=== PATIENT | male | born 1965 | race Caucasian/White ===

== ENCOUNTER 2017-05-31 07:35 | Day surgery (SDC) | payer BC ==
--- NOTE | 2017-05-16 07:42 | HP ---
HISTORY AND PHYSICAL: DATE OF ADMISSION: He is scheduled for surgery at [facility] on 05/31/17. HISTORY AND PHYSICAL EXAM DATE: 05/16/17 ATTENDING PHYSICIAN: Dr. Nunez * (DICTATED BY BRIGETTE RANDHAWA NP) CHIEF COMPLAINT: Ventral hernia and abdominal scar. HISTORY OF PRESENT ILLNESS: Chilango Roberts is a 51-year-old male who has an incisional ventral hernia with a widened abdominal scar. He has a history of intestinal obstruction and which he had surgery for this. Postoperatively, he has developed a small incisional ventral hernia and a widened abdominal scar and Dr. Nunez will be repairing the hernia with mesh and revising the abdominal scar. Dr. Nunez has discussed the nature and course of scar revision and hernia repair and has discussed the material risks and relevant alternatives to surgery. These are reviewed with the patient at his preoperative appointment including but not limited to infection, bleeding, poor healing, recurrence, DVT. The patient has been given a chance to ask questions and these have been answered. The patient will sign on admission an informed consent for ventral hernia repair with possible mesh and revision of abdominal scar. PAST MEDICAL HISTORY: The patient has a history of testicular cancer, hepatomegaly, venous reflux disease, stomach varices. PAST SURGICAL HISTORY: Cholecystectomy, surgery for his intestinal blockage, surgery for testicular cancer, and bilateral radiofrequency closure of the greater saphenous veins. MEDICATIONS: 1. Cyclobenzaprine HCl 10 mg tablets 3 times a day as needed. 2. Testosterone 200 mg every 2 weeks. 3. Trazodone HCl 50 mg daily. ALLERGIES: None. FAMILY HISTORY: Mother is in good health. Father at age 64 due to alcoholism. 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 He has a history of half a pack of cigarette use for 10 years, he notes that he is in the process of trying to quit. He denied alcohol use. REVIEW OF SYSTEMS: He denied problems with anesthesia. He denied bleeding tendencies. He has most recently had a cold approximately 2 weeks ago and taken antibiotics for this, but is currently without symptoms. PHYSICAL EXAMINATION GENERAL: Chilango Roberts is a 51-year-old male, well developed, well nourished, in no acute distress. VITAL SIGNS: Blood pressure 108/65, pulse is 95, respirations 18, weight 170 pounds. HEENT: Within normal limits. Teeth are in good repair. Pharynx clear. CHEST: Lungs clear. HEART: S1, S2. Regular rate and rhythm. No extra sounds, murmurs, clicks, or rubs. ABDOMEN: Soft, nontender. The patient has an upper midline ventral hernia and midline widened scar. There are no palpable masses. EXTREMITIES: +2 symmetrical radial pulses. NEURO: Alert and oriented x3. The rest exam was grossly intact. LOCAL EXAM: Shows a midline ventral incisional hernia and widened abdominal scar. PLAN: Same-day surgery admission to Dr. Nunez's service for ventral hernia repair with possible mesh and revision of abdominal scar. BRIGETTE RANDHAWA NP [id number]/[facility] #: [id number] EDNA
[~2017-05-31 07:35] MED LIST: Buffered Lidocaine 0.9% SYRIN* 5 ML/SYR SYRINGE INTRADERM ONE; Dexamethasone IV* 4 MG/ML 1 ML (4 MG) IV SLOW PU ONE; Famotidine IV* 10 MG/ML 2 ML (20 mg) IV ONE
[2017-05-31] MEDS ORDERED: ceFAZolin 2 GM PREMIX (*) 2 GM/50 ML BAG IVPB ONE (07:51)
[2017-05-31] MEDS ORDERED: Dexamethasone IV* 4 MG/ML 1 ML (4 MG) ONE (07:51)
[2017-05-31] MEDS ORDERED: Famotidine IV* 10 MG/ML 2 ML (20 mg) ONE (07:51)
[2017-05-31] MEDS ORDERED: Enoxaparin(*) 40 MG/0.4 ML SYR ONE (07:52)
[2017-05-31] MEDS ORDERED: Lidocaine 1% INJ* 10 MG/ML 30 ML SDV ONE (08:21)
[2017-05-31] MEDS ORDERED: Bupivacaine 0.5% SDV PF* 10-30ML VIAL ONE ×2 (08:22→09:54)
[2017-05-31] MEDS ORDERED: fentaNYL* 50 MCG/ML 2 ML VIAL (100 MCG VIAL) ONE ×2 (08:30→09:54)
[2017-05-31] MEDS ORDERED: Midazolam* 1 MG/ML 2 ML VIAL (2 MG) ONE (08:30)
[2017-05-31] MEDS ORDERED: Ketorolac INJ* 30 MG/ML 1 ML VIAL ONE (09:22)
[2017-05-31] MEDS ORDERED: Propofol* 10 MG/ML 20 ML BTL IV PUSH ONE (09:22)
[2017-05-31] MEDS ORDERED: Ondansetron INJ* 2 MG/ML VIAL ONE (09:22)
[2017-05-31] MEDS ORDERED: DiMENhydriNATE IV* 50 MG/ML VIAL IV PUSH PRN (09:35)
[2017-05-31] MEDS ORDERED: Naloxone* 0.4 MG/ML 1 ML VIAL IV PRN (09:35)
[2017-05-31] MEDS ORDERED: fentaNYL* 50 MCG/ML 2 ML VIAL (100 MCG VIAL) IV PRN (09:35)
[2017-05-31 11:06] VITALS: BP 100/87
--- NOTE | 2017-06-01 02:51 | OP ---
DATE OF OPERATION: 05/31/17 - [facility] DATE OF : 67 SURGEON: Morris Nunez MD END LATHE OPERATOR: Tita Herman NP ANESTHESIOLOGIST: Leno Mccray MD ANESTHESIA: General. PRE-OP DIAGNOSES: 1. Incisional ventral hernia. 2. Deformed scar of the mid abdomen. POST-OP DIAGNOSES: 1. Incisional ventral hernia. 2. Deformed scar of the mid abdomen. OPERATIVE PROCEDURE: 1. Incisional ventral hernia repair. 2. Revision of abdominal scar. ESTIMATED BLOOD LOSS: Approximately less than 20 cc. SPECIMEN: Abdominal scar. DESCRIPTION OF PROCEDURE: The patient was taken to the procedure room. Prior to this, the abdominal scar was marked as well as the ventral hernia which was located in the upper mid abdomen. The patient was then taken to the operating room. He received preoperative antibiotics, SCDs for DVT prophylaxis and under general anesthesia, he was prepped and draped in the usual sterile fashion. After this was done, the old scar was marked on the site for alignment. The scar was wide approximately 2 to 3 cm in some areas as this incision had healed by secondary intention after a Pneumovax had been applied after his past abdominal surgery. He also developed an upper incisional hernia and after the markings were done, an incision outside the old scar where there was healthy skin was made from top to bottom starting in the epigastrium all the way down to the symphysis pubis. Once this was done, the incision was carried on both sides. Bleeding was controlled by electrocoagulation. After this was done by sharp dissection, the mid scar was resected from top to bottom, leaving the fascia exposed. Again bleeders were controlled by electrocoagulation and the scar was sent as a specimen. We then concentrated our attention in the incisional ventral hernia. There was one in the upper epigastrium that measuring approximately a centimeter in diameter at the size of the ring and there was another smaller size more distal measuring 0.5 cm and there was some diastasis of the recti muscle. The fascia appeared to be strong and the rectus abdominis muscles were strong as well and well in the midline. A decision was made to proceed with nonabsorbable sutures. Dissection was carried around the sac in the properitoneal space in both hernias and under direct vision, the fascia was closed with a Durga Hart technique [id number] suturing using 2 - 0 Prolene and reinforcement of the midline in the areas of diastasis were done as well as with interrupted 2-0 Prolene. After they were placed under direct vision, the sutures when they are pulled upward and one-by-one was tied down and at the end they were then all cut. There was a strong repair with excellent approximation. There were no hernias in the mid or lower abdomen and at this point we then proceeded to reconstruct the subcutaneous tissue and skin , reapproximating the wide gap of the abdominal panniculus. Realigning the markings with interrupted 4-0 Vicryl and after this, a 4-0 Vicryl was used for subcutaneously using interrupted sutures until the skin had been approximated. The skin was then closed with a subcuticular using 4-0 Biosyn in a subcuticular manner and the skin was also reinforced with Steri-Strips. After this was done , there was excellent approximation prior to the complete closure of the skin. Marcaine was infiltrated and subcutaneous tissue for postoperative pain and after this was done, a non- pressure bandage was applied to the abdominal wall. The patient tolerated the procedure well and he was taken in good condition to recovery room. [id number]/[facility] #: [id number] EDNA
== END 2017-05-31 11:25 | disposition home or self-care (01) ==
LOC: OREAST 07:35
PROVIDERS: ATTEND Surgery
DX: K43.2 Incisional hernia without obstruction or gangrene (principal); L90.5 Scar conditions and fibrosis of skin; F17.200 Nicotine dependence, unspecified, uncomplicated; Z86.711 Personal history of pulmonary embolism; K70.30 Alcoholic cirrhosis of liver without ascites; G62.1 Alcoholic polyneuropathy; D69.6 Thrombocytopenia, unspecified; Z85.47 Personal history of malignant neoplasm of testis
CPT/HCPCS: 88300; J0690; J1100; J1650; J1885; J2250; J2405; J2704; J3010

== ENCOUNTER 2018-05-09 18:12 | Emergency (ER) | payer BC ==
[2018-05-09 18:38] VITALS: BP 130/86
--- NOTE | 2018-05-09 18:55 | UC ---
UC General HPI - HPI Summary HPI Summary: PT C/O MM ACHES, JOINT PAINS, HEADACHE AND FEVER OF 100.3 ONSET TODAY. + SORE THROAT - History of Current Complaint Chief Complaint: UCGeneralIllness Stated Complaint: FLU LIKE SXS Time Seen by Provider: 05/09/18 18:40 Onset/Duration: Sudden Onset Timing: Constant Pain Intensity: 5 Associated Signs & Symptoms: Positive: Diarrhea - LOOSE ONCE YESTERDAY, Fever, Headache. Negative: Abdominal Pain, Cough, Chest Pain, Dysuria, Nausea, SOB, Vomiting - Allergy/Home Medications Allergies/Adverse Reactions: Allergies Allergy/AdvReac Type Severity Reaction Status Date / Time Adhesive Tape Allergy Intermediate Rash Verified 05/09/18 18:27 PMH/Surg Hx/FS Hx/Imm Hx - Additional Past Medical History Additional PMH: SLEEP DISTURBANCE. - Surgical History Surgical History: Yes Surgery Procedure, Year, and Place: B/L ORCHIECTOMY. CHOLECYSTECTOMY. BOWEL RESECTION. SCAR REVISION OF BOWEL RESECTION--2018 - Family History Known Family History: Positive: Cardiac Disease, Hypertension - Social History Alcohol Use: None Alcohol Amount: 8 DRINKS OF VODKA DAILY Substance Use Type: None Smoking Status (MU): Former Smoker Type: Cigarettes Amount Used/How Often: 1 PPD Length of Time of Smoking/Using Tobacco: 10/2017 Have You Smoked in the Last Year: Yes - Immunization History Vaccination Up to Date: Yes Review of Systems All Other Systems Reviewed And Are Negative: Yes Constitutional: Positive: Fever, Chills Skin: Positive: Negative Eyes: Positive: Negative ENT: Positive: Sore Throat Respiratory: Positive: Negative Cardiovascular: Positive: Negative Gastrointestinal: Positive: Negative Genitourinary: Positive: Negative Motor: Positive: Negative Neurovascular: Positive: Negative Musculoskeletal: Positive: Arthralgia, Myalgia Neurological: Positive: Headache Psychological: Positive: Negative Is Patient Immunocompromised?: No Physical Exam Triage Information Reviewed: Yes Appearance: Well-Appearing Vital Signs: Initial Vital Signs Temp 100.3 F 05/09/18 18:29 Pulse 88 05/09/18 18:29 Resp 18 05/09/18 18:29 BP 130/86 05/09/18 18:29 Pulse Ox 99 05/09/18 18:29 Vital Signs Reviewed: Yes Eyes: Positive: Conjunctiva Clear ENT: Positive: Pharyngeal erythema, TMs normal, Uvula midline - WITH MILD ERYTHEMA AND SWELLING. Negative: Nasal congestion, Nasal drainage, Tonsillar swelling, Tonsillar exudate, Trismus, Muffled voice, Hoarse voice Neck: Positive: Supple, Nontender, Enlarged Nodes @ - PERITONSILAR NODES Respiratory: Positive: Lungs clear, Normal breath sounds Cardiovascular: Positive: RRR, No Murmur Abdomen Description: Positive: Nontender, No Organomegaly, Soft Bowel Sounds: Positive: Present Musculoskeletal: Positive: ROM Intact Neurological: Positive: Alert Psychological: Positive: Age Appropriate Behavior Skin Exam: Normal Diagnostics - Laboratory Diagnostic Studies Completed/Ordered: RAPID STREP AND FLU ARE NEGATIVE. Course/Dx - Course Course Of Treatment: RAPID STREP AND FLU ARE NEGATIVE. NOTHING ON EXAM TO SUGGEST BACTERIAL INFECTION. TX SUPPORTIVE. - Diagnoses Provider Diagnosis: Fever, Pharyngitis, Myalgia, Arthralgia Discharge - Sign-Out/Discharge Documenting (check all that apply): Patient Departure All imaging exams completed and their final reports reviewed: No Studies - Discharge Plan Condition: Stable Disposition: HOME Patient Education Materials: Viral Syndrome (ED) Referrals: Ros Tinsley PA [Primary Care Provider] - 5 Days Additional Instructions: FOLLOW UP IF NOT BETTER IN 5 DAYS OR SOONER IF WORSE. - Billing Disposition and Condition Condition: STABLE Disposition: Home - Attestation Statements Provider Attestation: I was available for consult. This patient was seen by the [facility]. The patient was not presented to, seen by, or examined by me. EK
== END 2018-05-09 19:24 | disposition home or self-care (01) ==
LOC: UCCORT 18:12
DX: R50.9 Fever, unspecified (principal); J02.9 Acute pharyngitis, unspecified; M79.10 Myalgia, unspecified site; M25.50 Pain in unspecified joint; Z87.891 Personal history of nicotine dependence
CPT/HCPCS: 87651; 99211; G0463

== ENCOUNTER 2019-06-23 08:55 | Emergency (ER) | payer BC ==
[2019-06-23 09:24] VITALS: BP 110/83
--- NOTE | 2019-06-23 10:19 | UC ---
Throat Pain/Nasal Jitendra HPI - HPI Summary HPI Summary: ONSET YESTERDAY OF SORE THROAT AND MILD COUGH/CONGESTION. NO FEVER, NAUSEA/ VOMITING. IS LEAVING FOR [place] NEXT WEEK AND WANTS TO MAKE SURE HE DOES NOT HAVE STREP. - History of Current Complaint Chief Complaint: UCRespiratory Stated Complaint: SORE THROAT Time Seen by Provider: 06/23/19 09:55 Hx Obtained From: Patient Onset/Duration: Gradual Onset, Lasting Days - 1 DAY, Still Present Severity: Mild Pain Intensity: 0 Pain Scale Used: 0-10 Numeric Cough: Nonproductive Associated Signs & Symptoms: Positive: Negative - Allergies/Home Medications Allergies/Adverse Reactions: Allergies Allergy/AdvReac Type Severity Reaction Status Date / Time Adhesive Tape Allergy Intermediate Rash Verified 06/23/19 09:24 PMH/Surg Hx/FS Hx/Imm Hx Previously Healthy: Yes - Surgical History Surgical History: Yes Surgery Procedure, Year, and Place: B/L ORCHIECTOMY. CHOLECYSTECTOMY. BOWEL RESECTION. SCAR REVISION OF BOWEL RESECTION--2018 - Family History Known Family History: Positive: Cardiac Disease, Hypertension - Social History Alcohol Use: None Alcohol Amount: 8 DRINKS OF VODKA DAILY Substance Use Type: None Smoking Status (MU): Former Smoker Type: Cigarettes Amount Used/How Often: 1 PPD Length of Time of Smoking/Using Tobacco: 10/2017 Have You Smoked in the Last Year: Yes - Immunization History Vaccination Up to Date: Yes Review of Systems All Other Systems Reviewed And Are Negative: Yes Constitutional: Positive: Negative ENT: Positive: Sore Throat Respiratory: Positive: Negative Cardiovascular: Positive: Negative Gastrointestinal: Positive: Negative Physical Exam Triage Information Reviewed: Yes Appearance: Well-Appearing, No Pain Distress, Well-Nourished Vital Signs: Initial Vital Signs Temp 98.4 F 06/23/19 09:20 Pulse 72 06/23/19 09:20 Resp 18 06/23/19 09:20 BP 110/83 06/23/19 09:20 Pulse Ox 96 06/23/19 09:20 Laboratory Tests 06/23/19 09:30 Group A Strep Rapid Negative Vital Signs Reviewed: Yes Eyes: Positive: Conjunctiva Clear ENT: Positive: Hearing grossly normal, Pharynx normal, TMs normal Neck: Positive: Supple, Nontender, No Lymphadenopathy Respiratory Exam: Normal Cardiovascular Exam: Normal Abdomen Description: Positive: Soft Musculoskeletal: Positive: No Edema Neurological: Positive: Alert Psychological: Positive: Age Appropriate Behavior Skin: Negative: Rashes Throat Pain/Nasal Course/Dx - Course Course Of Treatment: STREP NEGATIVE. LIKELY VIRALLY MEDIATED SYMPTOMS THAT SHOULD RESOLVE ON THEIR OWN WITH TIME. NO INDICATION FOR ANTIBIOTICS TODAY. REST, HYDRATE, OTC MEDS NEEDED. FOLLOW-UP IF NOT IMPROVING EXPECTED OVER THE NEXT 1-2 WEEKS. - Differential Dx/Diagnosis Provider Diagnosis: Acute pharyngitis Discharge ED - Sign-Out/Discharge Documenting (check all that apply): Patient Departure All imaging exams completed and their final reports reviewed: No Studies - Discharge Plan Condition: Stable Disposition: HOME Patient Education Materials: Pharyngitis (ED) Referrals: Ros Tinsley PA [Primary Care Provider] - If Needed Additional Instructions: STREP NEGATIVE. YOUR SYMPTOMS ARE LIKELY VIRALLY MEDIATED AND SHOULD RESOLVE ON THEIR OWN WITH TIME. NO INDICATION FOR ANTIBIOTICS AT PRESENT. REST, HYDRATE, OTC MEDS NEEDED. SEEK FOLLOW-UP IF YOU ARE NOT IMPROVING OVER THE NEXT 1-2 WEEKS. - Billing Disposition and Condition Condition: STABLE Disposition: Home
== END 2019-06-23 10:00 | disposition home or self-care (01) ==
LOC: UCEAST 08:55
DX: J02.9 Acute pharyngitis, unspecified (principal); Z87.891 Personal history of nicotine dependence; Z91.09 Other allergy status, other than to drugs and biological substances
CPT/HCPCS: 87651; 99211; G0463